=== PATIENT | male | born 1930 | race Caucasian/White ===

== ENCOUNTER 2020-02-19 09:51 | Day surgery (SDC) | payer OTHER ==
[2020-02-12 17:02] VITALS: BMI 17.2
[2020-02-19] MEDS: PHENYLEPHRINE 2.5% OPHTH SOLN 15 ML BOTTLE ONE ×3 (11:10→11:20)
[2020-02-19] MEDS: CYCLOPENTOLATE 2% OPHTH SOLN 2 ML BOTTLE ONE ×3 (11:10→11:20)
[2020-02-19] MEDS: CIPROFLOXACIN 0.3% EYE DROPS 5 ML BOTTLE ONE ×3 (11:10→11:20)
[2020-02-19] MEDS: TROPICAMIDE 1% OPHTH SOLN 15 ML BOTTLE ONE ×2 (11:10→11:15)
[2020-02-19] MEDS ORDERED: TROPICAMIDE 1% OPHTH SOLN 15 ML BOTTLE OS ONE (11:20)
[2020-02-19] MEDS ORDERED: MIDAZOLAM HCL 2 MG/2 ML SINGLE DOSE VIAL ONE (12:32)
[2020-02-19 14:05] VITALS: TEMP 97.7
[2020-02-19 14:08] VITALS: BP 119/75; PULSE 66
== END 2020-02-19 13:30 | disposition home or self-care (01) ==
LOC: FASU 09:51
PROVIDERS: ATTEND Ophthalmology
PROC: 08RK3JZ Replacement of Left Lens with Synthetic Substitute, Percutaneous Approach (ICD-10-PCS; principal; 2020-02-19 12:36)
DX: H26.9 Unspecified cataract (principal)

== ENCOUNTER 2020-05-25 12:15 | Emergency (ER) | payer OTHER ==
[2020-05-25 12:40] VITALS: BP 125/68; PULSE 60; TEMP 98; BMI 23.3
[2020-05-25] MEDS ORDERED: LIDOCAINE 5% TOPICAL PATCH TP ONE (12:40)
[2020-05-25] MEDS ORDERED: ACETAMINOPHEN 500 MG TABLET (FP) PO ONE (12:40)
[2020-05-25] MEDS ORDERED: ACETAMINOPHEN 500 MG TABLET (FP) ONE (13:17)
[2020-05-25] MEDS ORDERED: LIDOCAINE 5% TOPICAL PATCH ONE (13:17)
[2020-05-25 15:39] LABS: EPITHELIAL CELLS FEW /hpf
[2020-05-25] MEDS ORDERED: LIDOCAINE PATCH REMOVAL MC SCH (22:00)
== END 2020-05-25 15:10 | disposition home or self-care (01) ==
LOC: FER 12:15
DX: R07.81 Pleurodynia (principal); N39.0 Urinary tract infection, site not specified
CPT/HCPCS: 71101-TC-RT-FY; 81003; 81015; 99284-25

== ENCOUNTER 2020-08-26 07:26 | Day surgery (SDC) | payer OTHER ==
[2020-08-20 10:09] VITALS: BMI 18.3
[2020-08-26] MEDS: CIPROFLOXACIN 0.3% EYE DROPS 5 ML BOTTLE ONE ×3 (07:40→07:50)
[2020-08-26] MEDS: TROPICAMIDE 1% OPHTH SOLN 15 ML BOTTLE ONE ×3 (07:40→07:50)
[2020-08-26] MEDS: CYCLOPENTOLATE 2% OPHTH SOLN 2 ML BOTTLE ONE ×3 (07:40→07:50)
[2020-08-26] MEDS: PHENYLEPHRINE 2.5% OPHTH SOLN 15 ML BOTTLE ONE ×3 (07:40→07:50)
[2020-08-26] MEDS ORDERED: LIDOCAINE 1% P/F 10 MG/ML VIAL ONE (08:35)
[2020-08-26] MEDS ORDERED: BSS (NA/CA/MG/K) BALANCED SALT SOLUTION OPHTH SOLN 15 ML BOTTLE ONE (08:36)
[2020-08-26] MEDS ORDERED: CARBACHOL 0.01% INTRA-OCULAR 1.5 ML VIAL ONE (08:36)
[2020-08-26] MEDS ORDERED: NEO/POLYMYX B SULF/DEXAMETH OPHTHALMIC 5ML BOTTLE ONE (08:36)
[2020-08-26] MEDS ORDERED: TETRACAINE 0.5% OPHTH SOLN 2 ML BOTTLE ONE (08:36)
[2020-08-26 09:29] VITALS: PULSE 61; TEMP 98.1
[2020-08-26 10:43] VITALS: BP 135/84
== END 2020-08-26 09:50 | disposition home or self-care (01) ==
LOC: FASU 07:26
PROVIDERS: ATTEND Ophthalmology
PROC: 08RJ3JZ Replacement of Right Lens with Synthetic Substitute, Percutaneous Approach (ICD-10-PCS; principal; 2020-08-26 08:51)
DX: H26.8 Other specified cataract (principal)